=== PATIENT | female | born 1965 | race Caucasian/White ===

== ENCOUNTER 2022-02-19 08:02 | Outpatient (REF) | payer OTHER, SELFPAY ==
[2022-02-19 11:21] LABS: MANUAL DIFF FLAG NO
[2022-02-19 11:31] LABS: Basophils Percent Auto 0.7 % (0-2); Eosinophils Absolute Auto 0.1 X10*3/uL (0.0-0.4); Eosinophils Percent Auto 1.7 % (0-4); Hematocrit 41.4 % (37.0-47.0); Hemoglobin 13.2 g/dl (12.0-16.0); Imm Gran Abs Auto 0.01 X10*3/uL (0.00-0.03); Imm Gran Pct Auto 0.2 % (0.0-0.4); Lymphocytes Absolute Auto 1.5 X10*3/uL (1.2-4.9); Lymphocytes Percent Auto 26.9 % (20-40); Mean Corpuscular HGB Conc 31.9 g/dl (31.0-35.0); Mean Corpuscular Hemoglobin 27.7 pg (27.0-33.0); Mean Corpuscular Volume 86.8 fL (80.0-98.0); Mean Platelet Volume 10.4 fL (9.4-12.3); Monocytes Absolute Auto 0.5 X10*3/uL (0.1-1.2); Neutrophils Absolute Auto 3.3 x10*3/uL (2.0-8.3); Neutrophils Percent Auto 60.5 % (45-73); Platelet Count 308 X10*3/uL (160-400); Red Blood Count 4.77 X10*6/uL (4.20-5.50); Red Cell Distribution Width 13.6 % (11.0-16.0); White Blood Count 5.4 X10*3/uL (4.8-10.8)
[2022-02-19 11:45] LABS: Alanine Aminotransferase 19 U/L (0-31); Albumin Level 4.1 g/dL (3.5-5.0); Alkaline Phosphatase 87 U/L (39-117); Anion Gap 12 (12-20); Aspartate Amino Transferase 17 U/L (5-31); Bilirubin Total 1.2 mg/dL (0.0-1.0); Blood Urea Nitrogen 17 mg/dL (9-16); Carbon Dioxide 25 mmol/L (22-29); Chloride 106 mmol/L (96-108); Cholesterol 211 mg/dL; Estimated Glomerular Filt Rate > 60; Glucose Fasting 84 mg/dL (60-99); HDL Cholesterol 66 mg/dL; LDL Cholesterol Calculated 133 mg/dl; Potassium 4.7 mmol/L (3.3-5.1); Sodium 138 mmol/L (135-145); Total Protein 7.1 g/dL (6.5-8.0); Triglycerides 64 mg/dL
== END 2022-02-19 08:03 | disposition home or self-care (01) ==
LOC: HO.MANLDS 08:02
PROVIDERS: PCP Physician Assistant; Visit Provider Physician Assistant
DX: Z00.00 Encounter for general adult medical examination without abnormal findings (principal)
CPT/HCPCS: 36415; 80053; 80061; 85025

== ENCOUNTER 2022-09-15 14:29 | Outpatient (REF) | payer OTHER, SELFPAY ==
[2022-09-15 17:58] LABS: MANUAL DIFF FLAG NO
[2022-09-15 18:09] LABS: Basophils Percent Auto 0.7 % (0-2); Eosinophils Absolute Auto 0.1 X10*3/uL (0.0-0.4); Hematocrit 41.4 % (37.0-47.0); Hemoglobin 13.4 g/dl (12.0-16.0); Imm Gran Abs Auto 0.02 X10*3/uL (0.00-0.03); Imm Gran Pct Auto 0.3 % (0.0-0.4); Lymphocytes Absolute Auto 1.8 X10*3/uL (1.2-4.9); Lymphocytes Percent Auto 29.4 % (20-40); Mean Corpuscular HGB Conc 32.4 g/dl (31.0-35.0); Mean Corpuscular Hemoglobin 27.9 pg (27.0-33.0); Mean Corpuscular Volume 86.1 fL (80.0-98.0); Mean Platelet Volume 10.1 fL (9.4-12.3); Monocytes Absolute Auto 0.5 X10*3/uL (0.1-1.2); Monocytes Percent Auto 7.9 % (2-11); Neutrophils Absolute Auto 3.7 x10*3/uL (2.0-8.3); Neutrophils Percent Auto 60.7 % (45-73); Platelet Count 329 X10*3/uL (160-400); Red Blood Count 4.81 X10*6/uL (4.20-5.50); Red Cell Distribution Width 13.2 % (11.0-16.0); White Blood Count 6.1 X10*3/uL (4.8-10.8)
[2022-09-15 18:37] LABS: Erythrocyte Sedimentation Rate 5 MM/HR (0-20)
[2022-09-15 18:38] LABS: Thyroid Stimulating Hormone 1.24 uIU/mL (0.32-4.0)
[2022-09-16 08:19] LABS: Monotest Negative (Negative)
[2022-09-18 01:24] LABS: EBV-VCA IgM Ab <36.00 U/mL
== END 2022-09-15 14:30 | disposition home or self-care (01) ==
LOC: HO.MANLDS 14:29
PROVIDERS: Visit Provider Internal Medicine
DX: R22.1 Localized swelling, mass and lump, neck (principal)
CPT/HCPCS: 36415; 84443; 85025; 85652; 86308; 86664; 86665

== ENCOUNTER 2022-11-19 15:39 | Outpatient (REF) | payer OTHER, SELFPAY ==
[2022-11-19 20:43] LABS: MANUAL DIFF FLAG NO
[2022-11-19 20:44] LABS: Basophils Percent Auto 0.6 % (0-2); Eosinophils Absolute Auto 0.1 X10*3/uL (0.0-0.4); Eosinophils Percent Auto 1.6 % (0-4); Hematocrit 42.5 % (37.0-47.0); Hemoglobin 13.9 g/dl (12.0-16.0); Imm Gran Abs Auto 0.02 X10*3/uL (0.00-0.03); Imm Gran Pct Auto 0.3 % (0.0-0.4); Lymphocytes Percent Auto 31.6 % (20-40); Mean Corpuscular HGB Conc 32.7 g/dl (31.0-35.0); Mean Corpuscular Hemoglobin 27.6 pg (27.0-33.0); Mean Corpuscular Volume 84.5 fL (80.0-98.0); Mean Platelet Volume 10.1 fL (9.4-12.3); Monocytes Absolute Auto 0.6 X10*3/uL (0.1-1.2); Monocytes Percent Auto 9.4 % (2-11); Neutrophils Absolute Auto 3.5 x10*3/uL (2.0-8.3); Neutrophils Percent Auto 56.5 % (45-73); Platelet Count 316 X10*3/uL (160-400); Red Blood Count 5.03 X10*6/uL (4.20-5.50); Red Cell Distribution Width 13.3 % (11.0-16.0); White Blood Count 6.3 X10*3/uL (4.8-10.8)
[2022-11-19 21:01] LABS: Uric Acid 2.7 mg/dL (2.4-5.7)
== END 2022-11-19 15:40 | disposition home or self-care (01) ==
LOC: HO.MANLDS 15:39
PROVIDERS: Visit Provider Physician Assistant
DX: M10.032 Idiopathic gout, left wrist (principal)
CPT/HCPCS: 36415; 84550; 85025

== ENCOUNTER 2024-02-17 07:29 | Outpatient (REF) | payer OTHER, SELFPAY ==
[2024-02-17 13:09] LABS: MANUAL DIFF FLAG NO
[2024-02-17 13:33] LABS: Basophils Percent Auto 0.7 % (0-2); Eosinophils Absolute Auto 0.1 X10*3/uL (0.0-0.4); Hematocrit 43.8 % (37.0-47.0); Hemoglobin 14.3 g/dl (12.0-16.0); Imm Gran Abs Auto 0.01 X10*3/uL (0.00-0.03); Imm Gran Pct Auto 0.2 % (0.0-0.4); Lymphocytes Absolute Auto 1.5 X10*3/uL (1.2-4.9); Lymphocytes Percent Auto 24.5 % (20-40); Mean Corpuscular HGB Conc 32.6 g/dl (31.0-35.0); Mean Corpuscular Hemoglobin 28.4 pg (27.0-33.0); Mean Corpuscular Volume 86.9 fL (80.0-98.0); Monocytes Absolute Auto 0.5 X10*3/uL (0.1-1.2); Monocytes Percent Auto 8.5 % (2-11); Neutrophils Absolute Auto 3.9 x10*3/uL (2.0-8.3); Neutrophils Percent Auto 65.1 % (45-73); Platelet Count 332 X10*3/uL (160-400); Red Blood Count 5.04 X10*6/uL (4.20-5.50)
[2024-02-17 13:43] LABS: Estimated Average Glucose 100 mg/dL; Hemoglobin A1c % 5.1 % (<6.0)
[2024-02-17 14:45] LABS: Alanine Aminotransferase 26 U/L (0-31); Albumin Level 4.2 g/dL (3.5-5.0); Alkaline Phosphatase 95 U/L (39-117); Anion Gap 15 (12-20); Aspartate Amino Transferase 22 U/L (5-31); Bilirubin Total 1.5 mg/dL (0.0-1.0); Blood Urea Nitrogen 15 mg/dL (9-16); Calcium 9.5 mg/dL (8.4-10.2); Carbon Dioxide 25 mmol/L (22-29); Chloride 106 mmol/L (96-108); Cholesterol 214 mg/dL (<200); Estimated Glomerular Filt Rate > 60; Glucose Random 83 mg/dL (60-115); HDL Cholesterol 63 mg/dL (>40); LDL Cholesterol Calculated 135 mg/dL (<100); Potassium 4.5 mmol/L (3.3-5.1); Sodium 141 mmol/L (135-145); Total Protein 7.3 g/dL (6.5-8.0); Triglycerides 82 mg/dL (<150)
[2024-02-17 15:02] LABS: Vitamin D 25-OH Total 31.3 ng/mL (>30)
== END 2024-02-17 07:30 | disposition home or self-care (01) ==
LOC: HO.MANLDS 07:29
PROVIDERS: Visit Provider Physician Assistant
DX: Z00.00 Encounter for general adult medical examination without abnormal findings (principal); Z13.6 Encounter for screening for cardiovascular disorders
CPT/HCPCS: 36415; 80053; 80061; 82306; 83036; 85025

== ENCOUNTER 2025-03-22 08:12 | Outpatient (REF) | payer OTHER, SELFPAY ==
--- OUTSIDE RECORDS SUMMARY | 2025-03-22 08:17 | XMS_ITS | Data Portability ---
Author Organization [facility], Telehealth Patient Home Address [address] [place] [address] Assessment No assessment recorded. Plan of Treatment Reminders Order Date Submit Date Provider Last Modified By Organization Details Last Modified Time Details Appointments ANNUAL EXAM 2025 02:15P VALORIE BACK Not available Not available Not available Lab CMP, serum or plasma 2024 025 [facility], [address] [place] [address], [id number], 03/15/2025 14:41:52 CBC w/ auto diff 2024 025 [facility], [address] [place] [address], [id number], 03/15/2025 14:41:52 lipid panel, blood 2024 025 [facility], [address] [place] [address], [address], 03/15/2025 14:41:52 vitamin D, 25-hydrox y, total, serum 2024 025 [facility], [address] [place] [address], [address], 03/15/2025 14:41:53 hemoglobi n A1c, QN, blood 2024 025 [facility], [address] [place] [address], [address], 03/15/2025 14:41:52 TSH + free T4, serum 2024 025 [facility], [address] [place] [address], [address], 03/15/2025 14:41:52 vitamin B12 + folate, serum or blood 2024 025 [facility], [address] [place] [address], [address], 03/15/2025 14:41:52 iron + TIBC + ferritin, serum 2024 025 [facility], [address] [place] [address], [address], 03/15/2025 14:41:53 CMP, serum or plasma 2023 024 [facility], [address] [place] [address], [id number], 02/20/2024 11:26:08 CBC w/ auto diff 2023 024 [facility], [address] [place] [address], [address], 02/15/2024 16:08:50 lipid panel, blood 2023 024 [facility], [address] [place] [address], [address], 02/20/2024 11:26:08 vitamin D, 25-hydrox y, total, serum 2023 024 [facility], [address] [place] [address], [address], 02/15/2024 16:08:50 hemoglobi n A1c, QN, blood 2023 024 [facility], [address] [place] [address], [address], 02/15/2024 16:08:50 uric acid, serum or plasma 2022 023 [facility], [address] [facility], [place], [address], 11/22/2022 11:29:37 CBC w/ auto diff 2022 023 [facility], [address] [facility], [place], [address], 11/19/2022 15:20:28 Referral ophthalmo logist referral 2022 023 [email or web address], [address] [place] [address], [id number], 12/27/2022 09:27:41 Procedures None recorded. Surgeries None recorded. Imaging XR, hip + pelvis, unilatera l, 2 or 3 view 2023 024 CARMINA Not available 06/22/2024 16:27:23 US, breast, unilatera l 2023 024 [email or web address] Not available 06/22/2024 09:20:01 MAMMO, diagnosti c, digital, unilatera l 2023 024 hrubner Not available 07/04/2024 08:35:59 MAMMO, screening , digital, bilateral 2023 024 [email or web address] Not available 02/29/2024 09:10:18 XR, orbit, 4 or more view 2022 023 [email or web address] Not available 12/31/2022 08:33:22 Medication Orders oxybutyni n chloride ER 5 mg tablet,ex tended release 24 hr 2024 025 [id number], [address], [place], [id number], 03/15/2025 14:34:29 phentermi ne 15 mg capsule 2024 025 [facility], [address], [place], [id number], 03/15/2025 14:44:37 celecoxib 200 mg capsule 2023 024 [facility]200, [address], [place], [id number], 06/20/2024 16:50:01 tramadol 50 mg tablet 2023 024 [facility], [address], [place], [id number], 06/20/2024 16:50:03 meloxicam 15 mg tablet 2023 024 [facility], [address] [place], [address], 03/15/2025 14:27:08 TobraDex 0.3 %-0.1 % eye drops,eloy pension [address]/Pharmacy #2024, [address] [place], [address], 02/15/2024 15:45:09 prednison e 20 mg tablet [address]/Pharmacy #2024, [address] [place], [address], 02/15/2024 15:44:59 colchicin e 0.6 mg tablet 2022 023 [facility] #2024, [address] [place], [address], 12/24/2022 11:31:49 doxycycli ne monohydra te 100 mg capsule 2022 023 [facility], [address] [place], [address], 12/17/2022 10:10:06 Patient TargetsNo targets recorded. 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 [email or web address] [facility] [address] [place] [address] [place], [address], 06/14/2024 17:51:15 06/22/20 24 06/22/2024 XR, hip + pelvi s, unila teral , 2 or 3 view No observ ation record ed. [email or web address] [facility] [address] [place] [address] [place], [address], 06/22/2024 16:38:30 07/13/20 24 07/11/2024 MRI, hip, w/o contr ast No observ ation record ed. [email or web address] [facility] [address] [place] [address] [place], [address], 07/13/2024 14:02:33 08/09/20 24 08/09/2024 MAMMO , diagn ostic , digit al, unila teral No observ ation record ed. [email or web address] [facility] [address] [place] [address] [place], [address], 08/09/2024 19:09:08 Result Notes None recorded. Problems Name Problem SNOMED Code Status Onset Date Resolution Date Notes Provider Name and Address Organization Details Recorded Time Divertic ulosis of colon 494076325 Active 2018 Not Available [facility] 3 15:02:33 Microsco pic hematuri a 662292043 Active 2018 Not Available [facility] 3 15:02:33 Adenoma of liver 155611997 Active 2018 biopsy 2-13-20 07 Not Available [facility] 3 15:02:33 COVID-19 193323854 Active 2020 Not Available [facility] 3 15:02:33 Eczema 43158045 Active 2021 Not Available [facility] 3 15:02:33 Insomnia 048066556 Active 2021 Not Available [facility] 3 15:02:33 Subcutan eous mass of neck 17304889418 942311 Active 2021 Not Available [facility] 3 15:02:32 Reactive lymphade nopathy 738899069 Active 2021 Not Available [facility] 3 15:02:33 Pain in left thumb 06358945472 38626 Active 2022 Not Available [facility] 3 15:02:33 Gout 96011561 Active 2022 Not Available [facility] 3 15:02:33 Acute otitis media 3431503 Active 2022 Not Available [facility] 3 15:02:33 Orbital cellulit is 433491954 Active 2022 Not Available [facility] 3 15:02:33 Orbital cellulit is 802087693 Active 2022 Not Available [facility] 3 15:02:33 Trochant barbara bursitis of left hip 99987597952 9103 Active 2023 VALORIE KAY [address] [place], [address], [facility] 4 15:56:01 Gastroes ophageal reflux disease 786039204 Completed 201711/06/2018 Valery Peña NP, S [address] [place], [address], [facility] 9 14:34:30 Internal hemorrho ids 24796766 Active 2017 Not Available [facility] 3 15:02:33 Divertic ulitis 967494213 Completed 201711/06/2018 Valery Peña NP, S [address] [place] [address], [address], [facility] 9 14:34:52 Obesity 722832760 Active 2017 Not Available [facility] 3 15:02:33 Pain of left hip joint 32254975649 9100 Active 2023 VALORIE KAY [address] [place] [address], [address], [facility] 4 16:44:53 Mammogra phy abnormal 283614790 Active 2023 VALORIE KAY [address] [place] [address], [address], [facility] 4 16:56:52 Overacti ve urinary bladder 306225767 Active 2024 VALORIE KAY [address] [place] [address], [address], [facility] 5 14:33:37 Migraine 01648477 Active 2017 Not Available [facility] 3 15:02:33 Problem Notes None recorded. Procedures Surgical History Date Name Laterality Status Provider Name and Address Organization Details Recorded Time 024 Colonoscopy completed Cata Aguilar [facility] 08/06/2024 11:20:22 016 Date of Last Pap Smear completed Valery Peña NP, S [address] [place] [address], [phone], [facility] 11/06/2018 14:20:24 oophorectomy completed Valery tapia NP, S [address] [place] [address], [address], [facility] 11/06/2018 14:19:33 cholecystectomy completed Valery hogan NP, S [address] [place] [address] [place], [address], [facility] 11/06/2018 14:19:47 Imaging Results None recorded. Procedure Notes None recorded. Medical Equipment None Reported. Allergies No known drug allergies Medications Name Sig Start Date Stop Date Status Note LastModified by Organization Details LastModified Time celecoxib 200 mg capsule TAKE 1 CAPSULE BY MOUTH TWICE DAILY 2024 active Not Available Not Available Not Avai lable cyclobenzap rine 10 mg tablet 09/11 completed Not Available Not Available Not Available amoxicillin 500 mg capsule 01/17 completed Not Available Not Available Not Available prednisone 10 mg tablet PLEASE SEE ATTACHED FOR DETAILED DIRECTION S 12/24 completed Not Available Not Available Not Available doxycycline hyclate 100 mg capsule 01/17 completed Not Available Not Available Not Available Saline Mist 0.65 % nasal spray aerosol INSTILL 1 SPRAY INTO EACH NOSTRIL NEEDED FOR CONGESTIO N. active Not Available Not Available No t Available benzonatate 200 mg capsule 03/18 completed Not Available Not Available Not Available meloxicam 15 mg tablet TAKE 1 TABLET BY MOUTH EVERY DAY DIRECTED 03/15 completed Not Available Not Available Not Available prednisone 20 mg tablet Take 1 tablet every day by oral route for 14 days. 02/14 completed Not Available Not Available Not Available Zithromax Z-Isaiah 250 mg tablet TAKE 2 TABLETS (500 MG) BY ORAL ROUTE ONCE DAILY FOR 1 DAY THEN 1 TABLET (250 MG) BY ORAL ROUTE ONCE DAILY FOR 4 DAYS 03/14 completed Not Available Not Available Not Available phentermine 15 mg capsule 2024 active Not Available Not Available Not Avai lable penicillin V potassium 500 mg tablet Take 1 tablet every 8 hours by oral route. 02/03 completed Not Available Not Available Not Available valacyclovi r 500 mg tablet TAKE 1 TABLET BY MOUTH TWICE A DAY FOR 7 DAYS 02/14 completed Not Available Not Available Not Available ciprofloxac in 500 mg tablet TAKE 1 TABLET BY MOUTH EVERY 12 HOURS FOR 7 DAYS 12/24 completed Not Available Not Available Not Available tramadol 50 mg tablet TAKE 1 TABLET BY MOUTH EVERY 6 HOURS FOR 7 DAYS NEEDED active Not Available Not Available No t Available amoxicillin 500 mg tablet Take 1 tablet every 8 hours by oral route as directed. 11/06 completed Not Available Not Available Not Available doxycycline monohydrate 100 mg capsule TAKE 1 CAPSULE BY MOUTH TWICE A DAY FOR 5 DAYS 12/17 completed Not Available Not Available Not Available erythromyci n 5 mg/gram (0.5 %) eye ointment 11/06 completed Not Available Not Available Not Available oseltamivir 75 mg capsule 01/17 completed Not Available Not Available Not Available betamethaso ne dipropionat e 0.05 % topical cream APPLY THIN LAYER TOPICALLY TO THE AFFECTED AREA EVERY DAY 02/14 completed Not Available Not Available Not Available oxybutynin chloride ER 5 mg tablet,exte nded release 24 hr Take 1 tablet every day by oral route as directed for 30 days. 2024 active Not Available Not Available Not Avai lable codeine 10 mg-guaifene sin 100 mg/5 mL oral liquid 03/18 completed Not Available Not Available Not Available diclofenac sodium 50 mg tablet,isabel yed release TAKE 1 TABLET BY MOUTH TWICE A DAY WITH MEALS FOR 30 DAYS 02/14 completed Not Available Not Available Not Available zolpidem 5 mg tablet TAKE 5 MG TABLET FOR SLEEP AN HOUR BEFORE BEDTIME; TAKE AN ADDITIONA L 5 MG TABLET IF UNABLE TO STAY ASLEEP 02/12 completed Not Available Not Available Not Available colchicine 0.6 mg tablet TAKE 2 TABLETS BY MOUTH ONCE, THEN 1 TABLET BY MOUTH 1 HOUR LATER X1. REPEAT AFTER 3 DAYS IF NEEDED 12/24 completed Not Available Not Available Not Available clotrimazol e 1 % topical cream 01/17 completed Not Available Not Available Not Available naratriptan 2.5 mg tablet PLEASE SEE ATTACHED FOR DETAILED DIRECTION S active Not Available Not Available No t Available metronidazo le 0.75 % topical gel APPLY TO FACE TWICE DAILY. CAN APPLY MOISTURIZ ER OVER IT active Not Available Not Available No t Available naproxen 500 mg tablet TAKE 1 TABLET BY MOUTH 2 TIMES A DAY FOR 3 DAYS THEN TWICE DAILY NEEDED FOR PAIN, INFLAMMAT ION 02/14 completed Not Available Not Available Not Available amoxicillin 875 mg-potassiu m clavulanate 125 mg tablet TAKE 1 TABLET BY MOUTH EVERY 12 HOURS FOR 7 DAYS 12/24 completed Not Available Not Available Not Available nabumetone 500 mg tablet 09/11 completed Not Available Not Available Not Available TobraDex 0.3 %-0.1 % eye drops,suspe nsion INSTILL 1 DROP INTO AFFECTED EYE(S) BY OPHTHALMI C ROUTE EVERY 6 HOURS 02/14 completed Not Available Not Available Not Available Nyst. vincent's eastc 100,000 unit/gram topical powder 01/17 completed Not Available Not Available Not Available zolpidem ER 6.25 mg tablet,exte nded release,mul tiphase TAKE 1 TABLET BY MOUTH EVERY DAY active Not Available Not Available No t Available melatonin 1 at hs 03/18 completed Not Available Not Available Not Available Vitamin D 09/11 completed Not Available Not Available Not Available multivitami n daily active OTC Not Available Not Available Not Available ProAir HFA 90 mcg/actuati on aerosol inhaler 03/18 completed Not Available Not Available Not Available Probiotic 1 daily active Not Available Not Av ailable Not Available Afluria 1338-5292 (PF) 45 mcg(15 mcg x 3)/0.5 mL intramuscul ar syringe 01/17 completed Not Available Not Available Not Available Fluarix Quad (PF) 60 mcg (15 mcg x 4)/0.5 mL IM syringe 03/18 completed Not Available Not Available Not Available Flowflex COVID-19 Antigen Home Test kit 11/19 completed Not Available Not Available Not Available Paxlovid 300 mg (150 mg x 2)-100 mg tablets in a dose pack TAKE 3 TABLETS BY MOUTH TWICE A DAY FOR 5 DAYS 05/04 completed Not Available Not Available Not Available Vitals Date Recorded Body height Oxygen saturation Oxygen saturation in Arterial blood by Pulse oximetry Heart rate Systolic blood pressure Diastolic blood pressure Provider Name and Address Organization Details Last Updated DateTime 3 163.2 cm 98 % 98 % 87 /min 130 mm[Hg] 72 mm[Hg] Madeline Atkins [place] - [facility] 3 15:05:09 Date Recorded Body height Heart rate Oxygen saturation Oxygen saturation in Arterial blood by Pulse oximetry Systolic blood pressure Diastolic blood pressure Provider Name and Address Organization Details Last Updated DateTime 3 163.2 cm 89 /min 97 % 97 % 128 mm[Hg] 80 mm[Hg] LAMONT TRYBA, PA [address] [place], [address] 3 11:31:22 Date Recorded Body height Body mass index (BMI) Body weight Heart rate Respiratory rate Oxygen saturation Oxygen saturation in Arterial blood by Pulse oximetry Body temperature Systolic blood pressure Diastolic blood pressure Provider Name and Address Organization Details Last Updated DateTime 4 162.56 cm 33.4 kg/m2 85267.7 2 g 76 /min 16 /min 99 % 99 % 98.6 [degF] 116 mm[Hg] 68 mm[Hg] Neil Palacios [facility] 4 15:44:08 Date Recorded Body height Body mass index (BMI) Body weight Heart rate Oxygen saturation Oxygen saturation in Arterial blood by Pulse oximetry Systolic blood pressure Diastolic blood pressure Provider Name and Address Organization Details Last Updated DateTime 5 162.56 cm 33.8 kg/m2 22979.6 2 g 89 /min 96 % 96 % 124 mm[Hg] 86 mm[Hg] Cata Aguilar [facility] 5 14:21:27 Date Recorded Body height Body mass index (BMI) Body weight Heart rate Oxygen saturation Oxygen saturation in Arterial blood by Pulse oximetry Systolic blood pressure Diastolic blood pressure Provider Name and Address Organization Details Last Updated DateTime 4 162.56 cm 33.5 kg/m2 09198.2 3 g 80 /min 95 % 95 % 154 mm[Hg] 98 mm[Hg] Cata Aguilar [facility] 4 16:19:41 Social History Question Answer Notes LastModified by Organizat ion Details LastModified Time Tobacco Smoking Status Never Smoker Not Available [facility] 08/12/2020 03:36:24 What Was The Date Of Your Most Recent Tobacco Screening? 03/15/2025 [email or web address] Information not available 03/15/2025 Sex: Unknown Functional Status Question Answer Note LastModified by Organization D etails LastModified Time Do you or have you ever used any other forms of tobacco or nicotine? No [email or web address] Information not available 02/12/2022 Mental Status None recorded. Family History Relationship Description Onset Age of this Age Resolved Age Notes LastModified by Organization Details LastModified Time Mother Atrial fibrillation marquise Not available 14:17:50 Father Mesothelioma (malignant, clinical disorder) 79 marquise Not available 2018 14:18:17 Brother Osteoarthrit is addict marquise Not available 2018 14:18:57 Medical History Condition Response Coronary Artery Disease N Gout N Other N Kidney Stones N Blood Diseases N Blood Transfusion N Breast Cancer N Lung Disease N Depression N COPD N Defects or Inherited Disease N Anxiety Disorder N Muscle, Joint, or Bone Problems N Obesity N Vision or Eye Problems N Arthritis N Infertility N Polyps N Mental Disorder N Cancer N Stroke N Varicosities N Endometriosis N Bladder or Kidney Problems N High Cholesterol N Liver Disease N Fibromyalgia N Headaches N Kidney Disease N Allergies/Hayfever N Heart Problems N Hospitalizations N Thyroid Problems N GI Problems N Eating Disorder N Skin Problems N Anemia N MRSA exposure N Constipation N Mental Illness N Diabetes N Ovarian Cancer N Seizures/Epilepsy N Tuberculosis N Congestive Heart Failure (CHF) N Eczema N Abuse/Domestic Violence N Diverticulitis N Asthma N Reflux/GERD N Hepatitis N Heart Disease N Pulmonary Embolism N Hypertension N Chicken Pox N Autism Spectrum Disorder (ASD) N Osteoporosis N Gynecological History Statement/Question Response If Post Menopausal, Age at Menopause 51 Sexually Active? Y HPV Vaccine N Date of Last Pap Smear 10/10/2015 Sexual Problems? Y Current Control Method Menopause Age at Menarche 11 Age at First Child 46 Obstetrics History GPAL:G 1 P 1 0 0 1 Type Value Full Term 1 Living 1 Total 1 Immunizations Vaccine Type Date Status Note Provider Nam e and Address Organization Details Recorded Time Influenza, split virus, quadrivalent, preservative 1 completed Rosaura escobedo [facility] 02/12/2022 15:26:04 COVID-19, mRNA, LNP-S, PF, 100 mcg/0.5mL dose or 50 mcg/0.25mL dose 1 completed Rosaura escobedo [facility] 02/12/2022 15:26:04 COVID-19, mRNA, LNP-S, PF, 100 mcg/0.5mL dose or 50 mcg/0.25mL dose 1 completed Rosaura escobedo [facility] 02/12/2022 15:26:04 COVID-19, mRNA, LNP-S, PF, 100 mcg/0.5mL dose or 50 mcg/0.25mL dose 1 completed Rosaura escobedo [facility] 02/12/2022 15:26:04 Tdap 6 completed Valery Peña NP, S [address] [place] [address], [address], [facility] 11/06/2018 14:36:03 Influenza, split virus, quadrivalent, preservative 0 completed Rosaura escobedo [facility] 02/12/2022 15:26:04 Past Encounters Encounter ID Performer Location Encounter Start Date Encounter Closed Date Diagnosis/Indication Diagnosis SNOMED-CT Code Diagnosis ICD10 Code Diagnosis Note [id number] Valery Peña NP, S [address], [place] [address] 01/17/2018 11:29:07 01/17/2018 17:04:45 Streptococcal sore throat 10983825 J02.0 f/u in offic e tuesday Cervical lymphadenopathy 765065380 R59.0 abx for strep, f/u tuesday [id number],[place] [address] 01/20/2018 10:39:40 01/20/2018 16:38:07 Fatigue 17422897 R53.83 follow, improved Cervical lymphadenopathy 710561152 R59.0 continue abx, check cbcd/etc. inhouse lab today [id number] [place] [address] 02/03/2018 11:22:07 02/03/2018 15:41:03 Tachycardia 3216329 R00.0 Acute pharyngitis 623636 003 J02.9 Pharyngitis 228996445 J0 2.9 [id number] Anshul H[address]ley [address] [place] [address] 03/14/2018 09:20:52 03/14/2018 16:22:33 Migraine without aura 06068359 G43.009 History of bronchitis 27 5096086 Z87.09 pt aware to use only if necessary [id number] Anshul Hensley DO [facility] [address] [facility], [place] [address] 11/06/2018 14:04:56 11/06/2018 15:04:10 Adult health examination 060159473 Z00.00 Active or passive immunization 150981732 Z23 up to date Microscopic hematuria 19 2273817 R31.21 Migraine 66825281 G43.90 9 stable Obesity 164116382 E66.9 pt agrees to start walking program on treadmill reduce snacks and cut back on wine [id number] Anshul Hensley [facility] [address] [facility], [place] [address] 03/18/2020 09:57:49 03/18/2020 12:13:02 Adult health examination 163263218 Z00.00 no concerns today all caught up on colonoscop ies and mammograms Active or passive immunization 415236707 Z23 not right now due to pandemic [id number] Anshul Hensley DO [facility] [address] [facility] [address] 09/11/2021 15:50:03 09/11/2021 16:44:47 Insomnia 958808976 G47.09 will start on 5 mg of ambien, can take additional tablet if needed to stay asleepwill fu with how it works [id number] Anshul Hensley DO [facility] [address] [facility] [address] 11/10/2021 09:15:25 11/11/2021 08:24:57 Acute sinusitis 78294921 J01.01 will start [id number] Anshul Hensley DO [facility] [address] [facility] [address] 02/12/2022 15:25:39 02/12/2022 15:51:42 Active or passive immunization 885590231 Z23 not right now due to pandemic Adult heal th examination 714186659 Z00.00 no concerns today all caught up on colonoscop ies and mammograms Eczema 50933371 L20.89 will fu with topical Migraine 38906418 G43.00 9 will send in refill Insomnia 602276293 G47.0 9 ER works well Screening mammography 24 086619 Z12.31 will submit referral [id number] Anshul Hensley [facility] [address] [facility], [place] [address] 09/15/2022 13:45:49 09/15/2022 14:22:03 Subcutaneous mass of neck 7112627014 7354432 R22.1 we fatimah get US and lab will also use diclofenz [id number] Anshul Hensley [facility] [address] [facility], [place] [address] 11/19/2022 14:42:11 11/19/2022 16:43:41 Pain in left thumb 5057338537 441156 M79.645 will fu after lab results Gout 04922660 M10.032 will fu after lab results [id number] Anshul Hensley [facility] [address] [facility], [place] [address] 12/24/2022 11:23:21 12/24/2022 14:16:32 Orbital cellulitis 186321468 H05.013 will set up with XR orbit as this is the quickest [id number] Anshul Hensley [facility] [facility] [address] [facility],[place] [address] 02/15/2024 15:13:41 02/15/2024 16:19:34 Active or passive immunization [id number] Z23 not right now due to pandemic Adult heal th examination [id number] Z00.00 no concerns today all caught up on colonoscop ies and mammograms Depression screening 171 [id number] Z13.31 Negative Screening Trochanter ic bursitis of left hip [id number] 14543 M70.62 will set up with bursitis Screening mammography 24 545208 Z12.31 will submit referral Screening for malignant neoplasm of colon 134969416 Z12.11 given cologuard order [id number] Anshul Hensley DO [facility] [address] [facility],[place] [address] 06/20/2024 16:02:36 06/20/2024 19:22:08 Pain of left hip joint [id number] 26333 M25.552 will set up with XR to get MRIeither bursitis vs labral tear Mammography abnormal 168 163597 R92.8 hard faxed scheduling doc already, will send ordernever sent us a form to fill out [id number] Anshul Hensley DO [facility] [address] [facility],[place] [address] 03/15/2025 14:04:40 03/15/2025 15:14:45 Active or passive immunization [id number] Z23 not right now due to pandemic General ex amination of patient 022549411 Z00.00 no concerns today all caught up on colonoscop ies and mammograms Overactive urinary bladder [id number] N32.81 will trial oxybutynin Body mass index 30+ - obesity 292702618 Z68.33 196.7 lbs and 5'4 Health Concerns Section Related Observation LastModified by Organization Detai ls LastModified Time None Recorded Concern Status LastModified by Organization Details LastModified Time None Recorded Advance Directives Directive None Recorded Payers Insurance Date Sequence Insurance Name Policy Number Policy Gutierrez Covered Member ID Gutierrez Member ID Guarantor Name 03/15/[address] [place] [address] [id number] Ashleigh Gilman [id number] Ashleigh Gilman Notes Date Note Type Note Provider Name and Address Organization Details Recorded Time 11/19/19 23 text/htm l c/o infection? gout? the patient has left DIP pain swelling and rednesswill patient reports that she was opening a shampoo bottle and her thumb really hurt then swelled up agreed to uric acid and CBCI feel it is more likely gout than it is an infection but sent both gout meds and abx to [facility] call her when the results are in and tell her which one to take VALORIE KAY [address] [place], [address], [facility] 11/19/2022 15:22:12 12/25/19 23 text/htm l f/u orbital cellulitis the patient did improve marginally in terms of swellingthe patient is still having itching and mild visual changesconcered about a deeper infection; has already complete two courses of abx and a pred taper also presenting with frontal sinus pain left side and head pain left side (very sensitive to the touch) feels like she is being stabbed with an ice pick no other symptoms ddx include orbital cellulitis vs temporal arteritis (sent STAT message to her eye doctor for an eval today)sending out with XR (quickest image I can get today) restart 20 mg pred for the next two weeksstart on tobradex eye drops as well VALORIE KAY [address] [place], [address], [facility] 12/24/2022 11:55:07 02/15/20 24 text/htm l Annual WellnessReported bypatient.Diet and Nutrition:healthy diet; discussed vitamin and supplement use; discussed portion control; discussed maintaining calcium balance; discussed diet improvement Fracture Risk:no history of fractures; no recent explained fracture; no sudden unexplained fractures; no previous musculoskeletal injuries Physical Activity:exercises on a regular basis; recent increase in physical activity; good physical condition; discussed weightbearing activities; discussed exercise habits Depression Risk:never feels sad, empty, or tearful; no loss of interest in activities; no significant changes in weight; no sleep disturbances or insomnia; no agitation; no loss of energy; no feelings of worthlessness or guilt; no thoughts of suicide; no history of depression; no history of mood disorders Hearing:no loss of hearing Vision:no vision problems having hip pain L sidehas been about 3 weekspain is along probably where her bursitis some pain in her hands, that is probably arthritis in her handssome knee pain bilateral but nothing consistent VALORIE KAY [address] [place], [phone], [facility] 02/15/2024 16:08:32 06/20/20 24 text/htm l left hip pain no new injury or traumalocation still likely a bursitis from last evaluationrecommended fu with an MRI which patient agreedwill need XR first pain within the lateral side, along trochanteric bursa into the groinantalgic gait, weakened hip flexores fu XRthen MRIdoes not need to be open resubmitted info for the fu imaging for abnormal mm with the scheduling notificationwill fu on tuesday VALORIE KAY [address] [place], [address], [facility] 06/20/2024 17:00:22 03/15/20 25 text/htm l Annual WellnessReported bypatient.Diet and Nutrition:healthy diet; discussed vitamin and supplement use; discussed portion control; discussed maintaining calcium balance; discussed diet improvement Fracture Risk:no history of fractures; no recent explained fracture; no sudden unexplained fractures; no previous musculoskeletal injuries Physical Activity:exercises on a regular basis; recent increase in physical activity; good physical condition; discussed weightbearing activities; discussed exercise habits Additional Lifestyle Factors:no tobacco use; drinks alcohol (mild-moderate) Depression Risk:never feels sad, empty, or tearful; no loss of interest in activities; no significant changes in weight; no sleep disturbances or insomnia; no agitation; no loss of energy; no feelings of worthlessness or guilt; no thoughts of suicide; no history of depression; no history of mood disorders Hearing:no loss of hearing Vision:no vision problems VALORIE KAY [address] [place], [address], [facility] 03/15/2025 14:47:12 OBGyn Episode No OBEpisode recorded.
[2025-03-22 13:06] LABS: MANUAL DIFF FLAG NO
[2025-03-22 13:18] LABS: Basophils Absolute Auto 0.1 X10*3/uL (0.0-0.2); Basophils Percent Auto 0.9 % (0-2); Eosinophils Absolute Auto 0.1 X10*3/uL (0.0-0.4); Eosinophils Percent Auto 1.7 % (0-4); Hematocrit 40.7 % (37.0-47.0); Hemoglobin 13.1 g/dl (12.0-16.0); Imm Gran Abs Auto 0.03 X10*3/uL (0.00-0.03); Imm Gran Pct Auto 0.6 % (0.0-0.4); Lymphocytes Absolute Auto 1.7 X10*3/uL (1.2-4.9); Lymphocytes Percent Auto 31.3 % (20-40); Mean Corpuscular HGB Conc 32.2 g/dl (31.0-35.0); Mean Corpuscular Hemoglobin 27.6 pg (27.0-33.0); Mean Corpuscular Volume 85.9 fL (80.0-98.0); Mean Platelet Volume 10.1 fL (9.4-12.3); Monocytes Absolute Auto 0.5 X10*3/uL (0.1-1.2); Monocytes Percent Auto 10.1 % (2-11); Neutrophils Percent Auto 55.4 % (45-73); Platelet Count 324 X10*3/uL (160-400); Red Blood Count 4.74 X10*6/uL (4.20-5.50); Red Cell Distribution Width 14.4 % (11.0-16.0); White Blood Count 5.4 X10*3/uL (4.8-10.8)
[2025-03-22 13:27] LABS: Estimated Average Glucose 100 mg/dL; Hemoglobin A1c % 5.1 % (<6.0)
[2025-03-22 14:07] LABS: Alanine Aminotransferase 28 U/L (0-31); Albumin Level 4.2 g/dL (3.5-5.0); Alkaline Phosphatase 87 U/L (39-117); Anion Gap 10 (12-20); Aspartate Amino Transferase 27 U/L (5-31); Bilirubin Total 1.1 mg/dL (0.0-1.0); Blood Urea Nitrogen 24 mg/dL (9-16); Calcium 9.3 mg/dL (8.4-10.2); Carbon Dioxide 26 mmol/L (22-29); Chloride 109 mmol/L (96-108); Cholesterol 210 mg/dL (<200); Estimated Glomerular Filt Rate > 60; Ferritin 270 ng/mL (10-250); Glucose Random 91 mg/dL (60-115); HDL Cholesterol 61 mg/dL (>40); Iron 70 mcg/dL (30-160); LDL Cholesterol Calculated 133 mg/dL (<100); Percent Iron Saturation 27 % (15-50); Potassium 4.5 mmol/L (3.3-5.1); Sodium 140 mmol/L (135-145); Thyroid Stimulating Hormone 1.22 uIU/mL (0.32-4.0); Total Iron Binding Capacity 263 mcg/dL (228-428); Total Protein 6.6 g/dL (6.5-8.0); Triglycerides 84 mg/dL (<150); Unsaturated Iron Binding 193 ug/dL; Vitamin D 25-OH Total 47.2 ng/mL (>30)
[2025-03-22 14:23] LABS: Folate 17.5 ng/mL (> or = 4.0); Vitamin B12 474 pg/mL (200-900)
== END 2025-03-22 08:13 | disposition home or self-care (01) ==
LOC: HO.MANLDS 08:12
PROVIDERS: Visit Provider Physician Assistant
DX: Z00.00 Encounter for general adult medical examination without abnormal findings (principal); Z13.1 Encounter for screening for diabetes mellitus; Z13.6 Encounter for screening for cardiovascular disorders
CPT/HCPCS: 36415; 80053; 80061; 82306; 82607; 82728; 82746; 83036; 83540; 84439; 84443; 85025